=== PATIENT | male | born 1990 | race Caucasian/White ===

== ENCOUNTER 2017-11-29 16:00 | Emergency (ER) | payer OTHER ==
[~2017-11-29] VITALS: Ht 172.7 cm; Wt 62.5 kg
[~2017-11-29 16:00] MED LIST: FLEXERIL10 MG PO; METHADONE10 MG PO; MOTRIN IB200 MG PO; MOTRIN800 MG PO; NAPROSYN500 MG PO; NAPROXEN500 MG PO; NEPTAZANE50 MG; NOHOMEMEDS; ULTRAM50 MG PO; ZOFRAN ODT4 MG PO
[2017-11-29 16:03] VITALS: BP 117/60
== END 2017-11-29 18:02 | disposition home or self-care (01) ==
LOC: EME 16:00
PROC: 0HQDXZZ Repair Right Lower Arm Skin, External Approach (ICD-10-PCS; principal; 2017-11-29)
DX: S61.216A Laceration without foreign body of right little finger without damage to nail, initial encounter (principal); S61.214A Laceration without foreign body of right ring finger without damage to nail, initial encounter; S51.811A Laceration without foreign body of right forearm, initial encounter; W22.8XXA Striking against or struck by other objects, initial encounter; W25.XXXA Contact with sharp glass, initial encounter; F17.200 Nicotine dependence, unspecified, uncomplicated
CPT/HCPCS: 73090; 73130; 99281; 99284